=== PATIENT | female | born 1985 | race Two or more races ===

== ENCOUNTER 2017-09-09 10:26 | Emergency (ER) | payer BC ==
[2017-09-09 11:06] LABS: Basophils # (Auto) 0.1 K/mm3 (0.0-0.1); Basophils % (Auto) 0.7 % (0.0-1.8); Eosinophils # (Auto) 0.1 K/mm3 (0.0-0.4); Eosinophils % (Auto) 0.9 % (0.0-4.3); Hematocrit 40.3 % (30.3-42.9); Hemoglobin 13.7 gm/dl (10.1-14.3); Lymphocytes # (Auto) 2.9 K/mm3 (1.2-5.4); Lymphocytes % (Auto) 37.4 % (13.4-35.0); Mean Corpuscular HGB Conc 34 % (30-34); Mean Corpuscular Hemoglobin 29 pg (28-32); Mean Corpuscular Volume 84 fl (79-97); Monocytes # (Auto) 0.7 K/mm3 (0.0-0.8); Platelet Count 342 K/mm3 (140-440); Red Blood Count 4.82 M/mm3 (3.65-5.03)
[2017-09-09 11:32] LABS: Alanine Aminotransferase 22 units/L (7-56); BUN/Creatinine Ratio 14; Blood Urea Nitrogen 7 mg/dL (7-17); Calcium 9.1 mg/dL (8.4-10.2); Hemolysis Index 2; Lipase 19 units/L (13-60)
[2017-09-09] MEDS ORDERED: NACL 0.9% 1000 ML 1,000 ML IV ONE (12:08)
[2017-09-09] MEDS ORDERED: ZOFRAN IV ONE (12:08)
--- NOTE | 2017-09-09 12:16 | Emergency Department Report ---
ED Abdominal Pain HPI - General Chief Complaint: Abdominal Pain Stated Complaint: PAIN Time Seen by Provider: 09/09/17 11:59 Source: patient Mode of arrival: Wheelchair Limitations: No Limitations - History of Present Illness Initial Comments: 31yo female with no significant PMhx here for pelvic pain, pt states she is 6 weeks and has had pelvic pain and nausea vomiting that started this morning. Pt states denies any vaginal bleeding. Pt denies n/v/cp/sob. Pt denies fever, chills. pt denies any contractions. MD Complaint: other (pelvic pain) Onset/Timin -: Gradual, days(s) Location: suprapubic Radiation: none Migration to: no migration Severity: mild Severity scale (0 -10): 3 Quality: cramping Consistency: intermittent Improves With: nothing Worsens With: nothing Associated Symptoms: denies: nausea, vomiting, diarrhea, fever, chills, constipation, dysuria, hematemesis, hematochezia, melena, hematuria, anorexia, syncope - Related Data Home Medications Medication Instructions Recorded Confirmed Last Taken Acetaminophen/Diphenhydramine 1 each PO PRN 09/09/17 09/09/17 09/08/17 [Tylenol Pm Ex-Strength Caplet] Pnv No.103/Folic/Om3s/Fish Oil 1 each PO DAILY 09/09/17 09/09/17 09/08/17 [ Gummies] Allergies Allergy/AdvReac Type Severity Reaction Status Date / Time No Known Allergies Allergy Unverified 09/09/17 10:40 ED Review of Systems ROS: Stated complaint: PAIN Other details as noted in HPI Constitutional: denies: chills, fever Eyes: denies: eye pain, eye discharge, vision change ENT: denies: ear pain, throat pain Respiratory: denies: cough, shortness of breath, wheezing Cardiovascular: denies: chest pain, palpitations Endocrine: no symptoms reported Gastrointestinal: denies: abdominal pain, nausea, diarrhea Genitourinary: denies: urgency, dysuria, discharge Musculoskeletal: denies: back pain, joint swelling, arthralgia Skin: denies: rash, lesions Neurological: denies: headache, weakness, paresthesias Psychiatric: denies: anxiety, depression Hematological/Lymphatic: denies: easy bleeding, easy bruising ED Past Medical Hx - Past Medical History Previous Medical History?: Yes Hx Hypertension: Yes (during previous ) - Surgical History Past Surgical History?: Yes Additional Surgical History: x1 - Social History Smoking Status: Former Smoker Substance Use Type: None - Medications Home Medications: Home Medications Medication Instructions Recorded Confirmed Last Taken Type Acetaminophen/Diphenhydramine 1 each PO PRN 09/09/17 09/09/17 09/08/17 History [Tylenol Pm Ex-Strength Caplet] Pnv No.103/Folic/Om3s/Fish Oil 1 each PO DAILY 09/09/17 09/09/17 09/08/17 History [ Gummies] ED Physical Exam - General Limitations: No Limitations General appearance: alert, in no apparent distress - Head Head exam: Present: atraumatic, normocephalic - Eye Eye exam: Present: normal appearance - ENT ENT exam: Present: mucous membranes moist - Neck Neck exam: Present: normal inspection - Respiratory Respiratory exam: Present: normal lung sounds bilaterally. Absent: respiratory distress - Cardiovascular Cardiovascular Exam: Present: regular rate, normal rhythm. Absent: systolic murmur, diastolic murmur, rubs, gallop - GI/Abdominal GI/Abdominal exam: Present: soft, normal bowel sounds - External exam: Present: other (pelvic exam deferred) - Extremities Exam Extremities exam: Present: normal inspection - Back Exam Back exam: Present: normal inspection - Neurological Exam Neurological exam: Present: alert, oriented X3 - Psychiatric Psychiatric exam: Present: normal affect, normal mood - Skin Skin exam: Present: warm, dry, intact, normal color. Absent: rash ED Course Vital Signs 09/09/17 09/09/17 09/09/17 10:40 12:21 12:30 Temperature 98.6 F Pulse Rate 137 H Respiratory 18 Rate Blood Pressure 155/84 113/73 114/65 O2 Sat by Pulse 98 99 Oximetry 09/09/17 09/09/17 09/09/17 12:45 13:00 13:15 Temperature Pulse Rate Respiratory Rate Blood Pressure 125/81 115/64 115/64 O2 Sat by Pulse 99 99 98 Oximetry 09/09/17 09/09/17 09/09/17 13:30 13:45 14:00 Temperature Pulse Rate Respiratory Rate Blood Pressure 111/55 111/55 116/62 O2 Sat by Pulse 99 99 99 Oximetry 31yo female with no significant PMHx came in complaining of pelvic pain, NO VAGINAL BLEEDING, pts ultrasound shows: twin intrauterine viable age of 6weeks 1 day or 2 days, small subchorionic hemorrhage. Pt states she has an appt with jocelyn leahy obmagdiel, pt is already taking vitamins. At the time of discharge, pt is stable, pt denies n/v/cp/sob, pt is under no acute distress, she is relaxing in bed. Discussed with pt about doing a pelvic exam, but pt states she doesn't want it done and will followup with her OBGYN physician. Again pt doesnt want a pelvic exam done in the ER. I discussed the case with (OBGYN character impersonator) and per him nothing else to do at this point and to followup in his clinic. ED Medical Decision Making - Lab Data Result diagrams: 09/09/17 10:51 09/09/17 10:51 Critical care attestation.: If time is entered above; I have spent that time in minutes in the direct care of this critically ill patient, excluding procedure time. ED Disposition Clinical Impression: Twin , Pelvic pain during , Subchorionic hemorrhage in first trimester Disposition: DC-01 TO HOME OR SELFCARE Is pt being admited?: No Condition: Stable Instructions: Abdominal Pain (ED) Referrals: PRIMARY CARE, [Primary Care Provider] - 3-5 Days TAMARA CHAPARRO MD [Staff Physician] - [facility] (please followup in 1-2 days without fail)
[2017-09-09 12:46] LABS: Bilirubin,Urine NEG (Negative); Blood,Urine NEG (Negative); Color,Urine Amber (Yellow); Mucus,Urine 3+ /HPF
[2017-09-09 16:35] VITALS: BP 116/62
--- NOTE | 2017-09-09 17:13 | Ultrasound Report ---
FINAL REPORT EXAM: US OB < = 14 WEEKS FETUS HISTORY: pelvic pain . Unknown LMP. Beta HCG levels [id number] (corresponding to estimated gestational age 12-16 weeks) TECHNIQUE: Ultrasound of the pelvis using transabdominal and transvaginal imaging PRIORS: None. FINDINGS: Uterus: Uterus is enlarged in size and normal and homogeneous in echogenicity without focal fibroid formation. The uterus measures 10.0 x 6.7 x 7.3 cm in size. There is a twin early viable intrauterine gestation noted. Intrauterine gestation: There is a twin intrauterine gestation each identified with both a pole and yolk sac but both located within 1 gestational sac. An adjacent hypoechoic heterogeneous subchorionic hemorrhage is noted along the caudal edge of the sac measuring 1.7 x 0.7 x 0.9 cm. Twin A: heart rate is monitored at 118 BPM using M-mode doppler. [place]-rump length measurement of 0.5 cm corresponds to estimated age 6 weeks 2 days with EDC 05/03/2018. Twin B:. heart rate is monitored at 120 BPM using M-mode doppler. [place]-rump length measurement of 0.4 cm corresponds to estimated age 6 weeks 1 days with EDC 05/04/2018. Ovaries: Both ovaries appear normal in size and echogenicity with normal blood flow bilaterally. The right ovary measures 2.9 x 1.7 x 3.8 cm and the left ovary measures 2.5 x 1.5 x 2.2 cm in size. Minimally complex cyst in the right ovary measures 1.4 cm. Other: There is no evidence for solid adnexal mass is seen. There is no free fluid in the cul-de-sac. IMPRESSION: Twin intrauterine viable with an approximate age of 6 weeks 1 day or 2 days. Small subchorionic hemorrhage along the caudal margin of the gestational sac.
--- NOTE | 2017-09-09 17:13 | Ultrasound Report ---
FINAL REPORT EXAM: US OB < = 14 WK FETUS ADD GEST HISTORY: pelvic pain . Unknown LMP. Beta HCG levels [id number] (corresponding to estimated gestational age 12-16 weeks) TECHNIQUE: Ultrasound of the pelvis using transabdominal and transvaginal imaging PRIORS: None. FINDINGS: Uterus: Uterus is enlarged in size and normal and homogeneous in echogenicity without focal fibroid formation. The uterus measures 10.0 x 6.7 x 7.3 cm in size. There is a twin early viable intrauterine gestation noted. Intrauterine gestation: There is a twin intrauterine gestation each identified with both a pole and yolk sac but both located within 1 gestational sac. An adjacent hypoechoic heterogeneous subchorionic hemorrhage is noted along the caudal edge of the sac measuring 1.7 x 0.7 x 0.9 cm. Twin A: heart rate is monitored at 118 BPM using M-mode doppler. [place]-rump length measurement of 0.5 cm corresponds to estimated age 6 weeks 2 days with EDC 05/03/2018. Twin B:. heart rate is monitored at 120 BPM using M-mode doppler. [place]-rump length measurement of 0.4 cm corresponds to estimated age 6 weeks 1 days with EDC 05/04/2018. Ovaries: Both ovaries appear normal in size and echogenicity with normal blood flow bilaterally. The right ovary measures 2.9 x 1.7 x 3.8 cm and the left ovary measures 2.5 x 1.5 x 2.2 cm in size. Minimally complex cyst in the right ovary measures 1.4 cm. Other: There is no evidence for solid adnexal mass is seen. There is no free fluid in the cul-de-sac. IMPRESSION: Twin intrauterine viable with an approximate age of 6 weeks 1 day or 2 days. Small subchorionic hemorrhage along the caudal margin of the gestational sac.
--- NOTE | 2017-09-09 17:14 | Ultrasound Report ---
FINAL REPORT EXAM: US OB TRANSVAGINAL HISTORY: pelvic pain . Unknown LMP. Beta HCG levels [id number] (corresponding to estimated gestational age 12-16 weeks) TECHNIQUE: Ultrasound of the pelvis using transabdominal and transvaginal imaging PRIORS: None. FINDINGS: Uterus: Uterus is enlarged in size and normal and homogeneous in echogenicity without focal fibroid formation. The uterus measures 10.0 x 6.7 x 7.3 cm in size. There is a twin early viable intrauterine gestation noted. Intrauterine gestation: There is a twin intrauterine gestation each identified with both a pole and yolk sac but both located within 1 gestational sac. An adjacent hypoechoic heterogeneous subchorionic hemorrhage is noted along the caudal edge of the sac measuring 1.7 x 0.7 x 0.9 cm. Twin A: heart rate is monitored at 118 BPM using M-mode doppler. [place]-rump length measurement of 0.5 cm corresponds to estimated age 6 weeks 2 days with EDC 05/03/2018. Twin B:. heart rate is monitored at 120 BPM using M-mode doppler. [place]-rump length measurement of 0.4 cm corresponds to estimated age 6 weeks 1 days with EDC 05/04/2018. Ovaries: Both ovaries appear normal in size and echogenicity with normal blood flow bilaterally. The right ovary measures 2.9 x 1.7 x 3.8 cm and the left ovary measures 2.5 x 1.5 x 2.2 cm in size. Minimally complex cyst in the right ovary measures 1.4 cm. Other: There is no evidence for solid adnexal mass is seen. There is no free fluid in the cul-de-sac. IMPRESSION: Twin intrauterine viable with an approximate age of 6 weeks 1 day or 2 days. Small subchorionic hemorrhage along the caudal margin of the gestational sac.
[2017-09-09] MEDS ORDERED: K-DUR PO ONE (17:54)
== END 2017-09-09 18:31 | disposition home or self-care (01) ==
LOC: ED 10:26
DX: O46.8X1 Other antepartum hemorrhage, first trimester (principal); O30.001 Twin pregnancy, unspecified number of placenta and unspecified number of amniotic sacs, first trimester; Z3A.01 Less than 8 weeks gestation of pregnancy; Z87.891 Personal history of nicotine dependence
CPT/HCPCS: 36415; 76801; 76802; 76817; 80053; 81001; 83690; 84702; 84703; 85025; 96361; 96374; 99284; J2405; J7030